=== PATIENT | female | born 1955 | race African-American/Black ===

== ENCOUNTER → 2018-09-21 | Outpatient (CLI) | payer MEDICARE ==
--- NOTE | 2018-09-21 16:38 | RADIOLOGY REPORT (SQ) ---
EXAM DESCRIPTION: CERV SP 4 OR 5 VIEWS COMPLETED DATE/TIME: 09/21/2018 4:30 pm REASON FOR STUDY: M54.2 CERVICALGIA M43.16 SPONDYLOLISTIHESIS,LUMBAR REGION M54.2 CERVICALGIA M43.1 6 SPONDYLOLISTHESIS, LUMBAR REGION M51.37 OTHER INTERVERTEBRAL DISC DEGENERATION, LUMBOSACRAL R COMPARISON: None. NUMBER OF VIEWS: Five views including obliques. TECHNIQUE: AP, lateral, obliques and odontoid radiographic images acquired of the cervical spine. LIMITATIONS: None. FINDINGS: MINERALIZATION: Normal. SEGMENTATION: Normal. ALIGNMENT: Grade 1 spondylolisthesis C4-5 and C5-6. VERTEBRAE: Maintained height. No fracture or worrisome bone lesion. DISCS: Multilevel disc space narrowing with osteophytes. POSTERIOR ELEMENTS: Pedicles and facets are intact. No posterior arch defects. Facet arthropathy is present. FORAMINA: Narrowed at the levels of maximal disc and facet disease. HARDWARE: None in the spine. PARASPINAL SOFT TISSUES: Normal. OTHER: No other significant finding. IMPRESSION: Cervical disc disease. Mild malalignment. TECHNICAL DOCUMENTATION: JOB ID: [id number]- All Rights Reserved Reading location - IP/workstation name: [email or web address]
--- NOTE | 2018-09-21 16:40 | RADIOLOGY REPORT (SQ) ---
EXAM DESCRIPTION: L SPINE 2 VIEWS COMPLETED DATE/TIME: 09/21/2018 4:30 pm REASON FOR STUDY: M54.2 CERVICALGIA M43.16 SPONDYLOLISTIHESIS,LUMBAR REGION M54.2 CERVICALGIA M43.1 6 SPONDYLOLISTHESIS, LUMBAR REGION M51.37 OTHER INTERVERTEBRAL DISC DEGENERATION, LUMBOSACRAL R COMPARISON: None. TECHNIQUE: Lateral flexion and extension radiographs of the spine. NUMBER OF VIEWS: Two views. LIMITATIONS: None. FINDINGS: Grade 1 spondylolisthesis L3- 4 and L4-5, which reduces by 2-3 mm in extension compared to flexion. No abnormal motion. OTHER: No other significant finding. IMPRESSION: Spondylolisthesis. Mild instability. TECHNICAL DOCUMENTATION: JOB ID: [id number] [employer]- All Rights Reserved Reading location - IP/workstation name: [email or web address]
--- NOTE | 2018-09-21 17:41 | RADIOLOGY REPORT (SQ) ---
EXAM DESCRIPTION: MRI LUMBAR SPINE WITHOUT COMPLETED DATE/TIME: 09/21/2018 5:20 pm REASON FOR STUDY: M51.37 OTHER INTERVERTEBRAL DISC DEGENERATION, LUMBOSACRAL REGION M54.2 CERVICALG IA M43.16 SPONDYLOLISTHESIS, LUMBAR REGION M51.37 OTHER INTERVERTEBRAL DISC DEGENERATION, LUMBOSACR AL R COMPARISON: None. TECHNIQUE: Sagittal and Axial imaging includes T1, T2, STIR and gradient echo sequences. Coronal T2/ HASTE imaging. LIMITATIONS: None. FINDINGS: VISUALIZED UPPER ABDOMEN: Limited evaluation. No acute or suspicious findings suggested. SEGMENTATION: No transitional anatomy. The lowest well-developed disc space is labeled L5-S1. ALIGNMENT: Anatomic. VERTEBRAE: Superior endplate compression changes/Schmorl's node present at L1. BONE MARROW: Normal. No marrow replacement or reactive changes. DISC SIGNAL: Decreased signal intensity of the discs from L3-S1. There is mild narrowing of these di scs, greatest at L5-S1. POSTERIOR ELEMENTS: Generally intact. No pars defect evident. HARDWARE: None in the spine. CORD AND CONUS: Normal in size and signal intensity. Conus at the L1-2 level. SOFT TISSUES: No aortic aneurysm seen. No bulky retroperitoneal adenopathy or mass. No paraspinal mas s or fluid. L1-L2: No significant spinal stenosis or exit foraminal stenosis. L2-L3: No significant spinal stenosis or exit foraminal stenosis. L3-L4: Shallow circumferential disc bulge with no significant central canal or foraminal stenosis. L4-L5: Shallow circumferential disc bulge with no significant central canal or foraminal stenosis. L5-S1: Shallow circumferential disc bulge, slightly asymmetrical to the left. Appears to minimally d isplace the traversing nerve root on image 35 series 7. LOWER THORACIC: Incompletely imaged. No stenosis seen. SACRUM: Visualized upper sacrum intact. OTHER: No other significant findings. IMPRESSION: Disc bulges as described. The only lateralizing finding is at L5-S1 on the left. TECHNICAL DOCUMENTATION: JOB ID: [id number]- All Rights Reserved Reading location - IP/workstation name: [email or web address]
== END ==
LOC: EDBD → RAD 17:36
PROVIDERS: ATTEND Physician Assistant
DX: M54.2 Cervicalgia (principal); M43.16 Spondylolisthesis, lumbar region; M51.37 Other intervertebral disc degeneration, lumbosacral region
CPT/HCPCS: 72050; 72100; 72148

== ENCOUNTER → 2019-06-18 | Outpatient (CLI) | payer MEDICARE, MEDICAID ==
[2019-06-18 16:18] LABS: ABSOLUTE BASOPHILS # (AUTO) 0.1 10^3/uL (0.0-0.2); ABSOLUTE EOSINOPHILS # (AUTO) 0.1 10^3/uL (0.0-0.6); ABSOLUTE LYMPHOCYTES (AUTO) 2.8 10^3/uL (0.5-4.7); ABSOLUTE NEUT (AUTO) 6.5 10^3/uL (1.7-8.2); BASOPHILS % (AUTO) 0.8 % (0-2); EOSINOPHILS % (AUTO) 0.6 % (0-6); HEMATOCRIT 46.8 % (36.0-47.0); LYMPHOCYTES % (AUTO) 27.2 % (13-45); MEAN CORPUSCULAR HEMOGLOBIN 30.3 pg (27.0-33.4); MEAN CORPUSCULAR HGB CONC 34.2 g/dL (32.0-36.0); MEAN CORPUSCULAR VOLUME 89 fl (80-97); MONOCYTES % (AUTO) 9.2 % (3-13); PLATELET COUNT 353 10^3/uL (150-450); RED BLOOD COUNT 5.28 10^6/uL (3.72-5.28); RED CELL DISTRIBUTION WIDTH 15.8 % (11.5-14.0); SEGMENTED NEUTROPHILS % (AUTO) 62.2 % (42-78); TOTAL CELLS COUNTED % (AUTO) 100 %; WHITE BLOOD COUNT 10.4 10^3/uL (4.0-10.5)
[2019-06-18 16:36] LABS: ALBUMIN 3.8 g/dL (3.5-5.0); ALKALINE PHOSPHATASE 116 U/L (38-126); ANION GAP 10 (5-19); ASPARTATE AMINO TRANSFERASE 20 U/L (14-36); BILIRUBIN,DIRECT 0.1 mg/dL (0.0-0.4); BILIRUBIN,TOTAL 0.6 mg/dL (0.2-1.3); BLOOD UREA NITROGEN 12 mg/dL (7-20); CALCIUM 9.2 mg/dL (8.4-10.2); CARBON DIOXIDE 29 mmol/L (22-30); CHLORIDE 103 mmol/L (98-107); GLUCOSE 102 mg/dL (75-110); POTASSIUM 3.8 mmol/L (3.6-5.0)
[2019-06-18 17:14] LABS: ERYTHROCYTE SEDIMENTATION RATE 48 mm/hr (0-30)
== END ==
LOC: LAB 15:39
PROVIDERS: ATTEND Ophthalmology
DX: H44.113 Panuveitis, bilateral (principal); H35.373 Puckering of macula, bilateral
CPT/HCPCS: 36415; 80048; 80076; 82164; 85025; 85652; 86038; 86430; 86480; 86592; 86778

== ENCOUNTER → 2019-08-14 | Outpatient (CLI) | payer MEDICARE, MEDICAID ==
[2019-08-14 11:07] LABS: ABSOLUTE BASOPHILS # (AUTO) 0.1 10^3/uL (0.0-0.2); ABSOLUTE LYMPHOCYTES (AUTO) 2.2 10^3/uL (0.5-4.7); ABSOLUTE MONOCYTES (AUTO) 1.8 10^3/uL (0.1-1.4); ABSOLUTE NEUT (AUTO) 7.2 10^3/uL (1.7-8.2); BASOPHILS % (AUTO) 0.5 % (0-2); EOSINOPHILS % (AUTO) 0.3 % (0-6); HEMATOCRIT 46.5 % (36.0-47.0); HEMOGLOBIN 15.8 g/dL (12.0-15.5); LYMPHOCYTES % (AUTO) 19.3 % (13-45); MEAN CORPUSCULAR HEMOGLOBIN 30.7 pg (27.0-33.4); MEAN CORPUSCULAR HGB CONC 33.9 g/dL (32.0-36.0); MEAN CORPUSCULAR VOLUME 91 fl (80-97); MONOCYTES % (AUTO) 16.2 % (3-13); PLATELET COUNT 247 10^3/uL (150-450); RED BLOOD COUNT 5.14 10^6/uL (3.72-5.28); RED CELL DISTRIBUTION WIDTH 15.9 % (11.5-14.0); SEGMENTED NEUTROPHILS % (AUTO) 63.7 % (42-78); TOTAL CELLS COUNTED % (AUTO) 100 %; WHITE BLOOD COUNT 11.3 10^3/uL (4.0-10.5)
[2019-08-14 11:26] LABS: ALBUMIN 3.6 g/dL (3.5-5.0); ALKALINE PHOSPHATASE 84 U/L (38-126); ASPARTATE AMINO TRANSFERASE 16 U/L (14-36); BILIRUBIN,DIRECT 0.1 mg/dL (0.0-0.4); BILIRUBIN,TOTAL 1.1 mg/dL (0.2-1.3); TOTAL PROTEIN 6.8 g/dL (6.3-8.2)
== END ==
LOC: LAB 10:45
PROVIDERS: ATTEND Ophthalmology
DX: H44.113 Panuveitis, bilateral (principal); H35.033 Hypertensive retinopathy, bilateral; H35.373 Puckering of macula, bilateral; H04.123 Dry eye syndrome of bilateral lacrimal glands
CPT/HCPCS: 36415; 80076; 85025; 86480; 86592